=== PATIENT | male | born 1950 | race Caucasian/White ===

== ENCOUNTER 2019-01-04 09:06 | Emergency (ER) | payer OTHER ==
[2019-01-04 10:39] LABS: Absolute Lymphocytes (CBC) 0.9 K/uL (0.7-4.9); Basophils % 0.8 % (0-1.3); Eosinophils % 0.4 % (0-4.4); Hematocrit 42.9 % (39.6-49.0); Lymphocytes % 9.9 % (15.3-44.8); MPV 7.9 fL (7.6-11.3); Monocytes % 14.6 % (3.3-12.3); RBC Red Blood Cell Count 4.23 M/uL (4.33-5.43)
[2019-01-04 10:41] LABS: Protime INR 1.04
[2019-01-04 10:57] LABS: ALT/SGPT 19 U/L (12-78); AST/SGOT 11 U/L (15-37); Alkaline Phosphatase 58 U/L (45-117); BUN Blood Urea Nitrogen 10 mg/dL (7-18); Bicarbonate 27 mmol/L (21-32); Bilirubin Direct 0.2 mg/dL (0-0.2); Bilirubin Total 1.1 mg/dL (0.2-1.0); Glucose Level 103 mg/dL (74-106); Lipase 276 U/L (73-393); Magnesium 2.3 mg/dL (1.8-2.4); NT PRO-BNP 136 pg/mL (<125); Potassium 4.1 mmol/L (3.5-5.1); Protein, Total 7.5 g/dL (6.4-8.2); Sodium Level 138 mmol/L (136-145); Troponin (Emerg Dept Use Only) < 0.02 ng/mL (0.0-0.045)
--- NOTE | 2019-01-04 11:01 | RAD REPORT ---
EXAM DESCRIPTION: RAD - Chest Single View - 01/04/2019 10:47 am CLINICAL HISTORY: CHEST PAIN Chest pain. COMPARISON: No comparisons FINDINGS: Portable technique limits examination quality. The lungs are grossly clear. The heart is normal in size. No displaced fractures. IMPRESSION: No acute intrathoracic process suspected.
--- NOTE | 2019-01-04 12:03 | RAD REPORT ---
EXAM DESCRIPTION: CT - Chest For Pe Angio - 01/04/2019 11:55 am CLINICAL HISTORY: Chest pain. shortness of breath, chest pain COMPARISON: No comparisons TECHNIQUE: CT angiogram of the pulmonary arteries was performed with MIP. All CT scans are performed using dose optimization technique as appropriate and may include automated exposure control or mA/KV adjustment according to patient size. FINDINGS: No evidence of pulmonary thromboembolism. No acute aortic finding demonstrated. The lungs are clear. No significant pericardial or pleural fluid. No concerning bony finding. IMPRESSION: No evidence of pulmonary thromboembolism. No acute lung findings.
--- NOTE | 2019-01-04 12:07 | RAD REPORT ---
EXAM DESCRIPTION: CTAbdomen Pelvis W Contrast - 01/04/2019 11:55 am CLINICAL HISTORY: Abdominal pain. abdominal pain COMPARISON: <Comparisons> TECHNIQUE: Biphasic CT imaging of the abdomen and pelvis was performed with 100 ml non-ionic IV cont rast. All CT scans are performed using dose optimization technique as appropriate and may include automated exposure control or mA/KV adjustment according to patient size. FINDINGS: The lung bases are clear. Mild fatty liver is seen. No aggressive liver lesion is identified. No intrahepatic biliary dilatatio n. The spleen, adrenal glands and kidneys are within normal limits. 25 x 18 mm hypodense mass is seen in the pancreas uncinate process. The pancreatic duct is not dilate d. No bowel obstruction, free air, free fluid or abscess. Sigmoid diverticulosis coli without diverticul itis. The appendix is normal. No evidence of significant lymphadenopathy. Mild lumbosacral degenerative changes. IMPRESSION: 25 x 18 mm hypodense mass is present in the uncinate process of the pancreas. IPMT or cy stadenoma are differential possibilities. Recommend follow-up MR pancreas protocol with contrast on a nonemergent basis for further assessment.
[2019-01-04] MEDS ORDERED: MAGNE/ALUM HYDROXD 30 ML UCUP ONE (13:52)
[2019-01-04] MEDS ORDERED: LIDOCAINE VISCOUS 2% SOLN 15 ML UDC ONE (13:53)
--- NOTE | 2019-01-04 15:04 | EKG ---
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
--- NOTE | 2019-01-04 15:05 | EKG ---
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
--- NOTE | 2019-01-04 15:26 | RAD REPORT ---
EXAM DESCRIPTION: US - Abdomen Exam Limited - 01/04/2019 3:16 pm CLINICAL HISTORY: epigastric abdominal pain COMPARISON: No comparisons FINDINGS: The gallbladder demonstrates no gallstones. No pericholecystic fluid or gallbladder wall t hickening. The common bile duct is normal measuring 6 mm. The liver demonstrates no findings of intrahepatic biliary dilatation. IMPRESSION: Unremarkable examination.
--- NOTE | 2019-01-04 16:06 | EDPHYS ---
Physician Documentation [facility] Name: Juan Shelby Age: 68 yrs Sex: Male : 1950 Arrival Date: 01/04/2019 Time: 09:09 Bed 19 Private MD: Michelle Hernandez C ED Physician Torrey Veras HPI: 01/04 10:17 This 68 yrs old Male presents to ER via Ambulatory with complaints of Chest jmm Pain, Chest Tightness, Breathing Difficulty. 10:17 The patient presents with abdominal pain in the epigastric area. Onset: The jmm symptoms/episode began/occurred gradually, 1 day(s) ago. The symptoms radiate to chest. The symptoms are described as achy. Modifying factors: The symptoms are alleviated by nothing, the symptoms are aggravated by laying. This is a 68 year old male with a history of hlp that presents to the ED with complaints of epigastric abdominal pain which radiates to his chest. Symptoms are worsened with deep inspiration. Pain is localized mainly to the left upper quadrant. . Historical: - Allergies: 09:20 No Known Allergies; ch - Home Meds: 09:20 lumigan eye drops [Active]; rosuvastatin oral oral [Active]; ch - PMHx: 09:20 Hyperlipidemia; Arthritis; ch - PSHx: 09:20 None; ch - Immunization history:: Adult Immunizations up to date. - Social history:: Smoking status: Patient/guardian denies using tobacco, Patient/guardian denies using alcohol, street drugs. - Ebola Screening: : Patient negative for fever greater than or equal to 101.5 degrees Fahrenheit, and additional compatible Ebola Virus Disease symptoms Patient denies exposure to infectious person Patient denies travel to an Ebola-affected area in the 21 days before illness onset No symptoms or risks identified at this time. ROS: 10:17 Constitutional: Negative for fever, chills, and weight loss. jmm 10:17 Cardiovascular: Positive for chest pain. 10:17 Respiratory: Positive for shortness of breath. 10:17 Abdomen/GI: Positive for abdominal pain. 10:17 All other systems are negative. Exam: 10:17 Constitutional: This is a well developed, well nourished patient who is awake, alert, jmm and in no acute distress. Head/Face: atraumatic. Eyes: EOMI, no conjunctival erythema appreciated ENT: Moist Mucus Membranes Neck: Trachea midline, Supple Chest/axilla: Normal chest wall appearance and motion. Cardiovascular: Regular rate and rhythm. No edema appreciated Respiratory: Normal respirations, no respiratory distress appreciated 10:17 Back: Normal ROM Skin: General appearance color normal MS/ Extremity: Moves all extremities, no obvious deformities appreciated, no edema noted to the lower extremities Neuro: Awake and alert, normal gait Psych: Behavior is normal, Mood is normal, Patient is cooperative and pleasant 10:17 Abdomen/GI: Inspection: abdomen appears normal, Bowel sounds: normal, Palpation: abdomen is soft and non-tender. Vital Signs: 09:20 BP 111 / 81; Pulse 95; Resp 20; Temp 99; Pulse Ox 99% ; Weight 77.11 kg; Height 5 ft. 6 ch in. (167.64 cm); Pain 5/10; 10:30 BP 129 / 117; Pulse 71; Resp 17; Pulse Ox 97% on R/A; tw2 11:27 BP 142 / 85; Pulse 69; Resp 17; Pulse Ox 99% on R/A; tw2 12:30 BP 149 / 85; Pulse 70; Resp 17; Pulse Ox 98% on R/A; tw2 13:36 BP 144 / 86; Pulse 76; Resp 18; Pulse Ox 98% on R/A; aj 14:32 BP 141 / 89; Pulse 75; Resp 14; Pulse Ox 98% on R/A; tw2 15:43 BP 156 / 84; Pulse 88; Resp 16; Pulse Ox 97% on R/A; tw2 16:18 BP 141 / 161; Pulse 78; Resp 17; Pulse Ox 96% on NC; tw2 17:01 BP 161 / 92; Pulse 81; Resp 17; Pulse Ox 98% on R/A; tw2 17:15 BP 152 / 90; Pulse 81; Resp 17; Pulse Ox 97% on R/A; tw2 09:20 Body Mass Index 27.44 (77.11 kg, 167.64 cm) [facility]: 10:17 Patient medically screened. [facility] 16:01 Data reviewed: vital signs, nurses notes. Counseling: I had a detailed discussion with [facility] the patient and/or guardian regarding: the historical points, exam findings, and any diagnostic results supporting the discharge/admit diagnosis, lab results, radiology results, the need to transfer to another facility. ED course: I discussed the patient with Dr. House whom recommended transfer. I then discussed the patient with Dr. Daniel whom would consult on transfer. I discussed the patient with Dr. Diaz whom accepted transfer. . 01/04 10:19 Order name: Basic Metabolic Panel; Complete Time: 11:00 [facility] 01/04 10:19 Order name: CBC with Diff; Complete Time: 10:50 [facility] 01/04 10:19 Order name: LFT's; Complete Time: 11:00 [facility] 01/04 10:19 Order name: Magnesium; Complete Time: 11:00 [facility] 01/04 10:19 Order name: NT PRO-BNP; Complete Time: 11:00 [facility] 01/04 10:19 Order name: PT-INR; Complete Time: 10:48 [facility] 01/04 10:19 Order name: Troponin (emerg Dept Use Only); Complete Time: 11:00 [facility] 01/04 10:19 Order name: XRAY Chest (1 view); Complete Time: 11:03 [facility] 01/04 10:19 Order name: Lipase; Complete Time: 11:00 [facility] 01/04 10:24 Order name: D-Dimer; Complete Time: 11:03 [facility] 01/04 11:21 Order name: CT Chest For PE Angio; Complete Time: 12:08 [facility] 01/04 11:21 Order name: CT Abd/Pelvis - IV Contrast Only; Complete Time: 12:15 [facility] 01/04 14:13 Order name: Troponin (emerg Dept Use Only); Complete Time: 14:57 tw2 01/04 10:19 Order name: EKG; Complete Time: 10:21 [facility] 01/04 10:19 Order name: Cardiac monitoring; Complete Time: 10:34 [facility] 01/04 10:19 Order name: EKG - Nurse/Tech; Complete Time: 10:34 [facility] 01/04 10:19 Order name: IV Saline Lock; Complete Time: :34 [facility] 01/04 10:19 Order name: Labs collected and sent; Complete Time: 10:34 [facility] 01/04 10:19 Order name: O2 Per Protocol; Complete Time: 10:34 [facility] 01/04 10:19 Order name: O2 Sat Monitoring; Complete Time: : [facility] 01/04 14:13 Order name: EKG; Complete Time: 14:14 tw2 01/04 14:13 Order name: EKG - Nurse/Tech; Complete Time: 14:24 tw2 01/04 14:49 Order name: US Abdomen Limited; Complete Time: 15:30 [facility] Administered Medications: 13:40 Drug: GI Cocktail without - (Maalox Suspension 30 ml, Lidocaine Liquid 2 % 15 tw2 ml) Route: PO; 14:33 Follow up: Response: No adverse reaction tw2 Disposition: 18:23 Co-signature as Attending Physician, Torrey Veras MD. rn Disposition: 01/04/19 16:05 Transfer ordered to [facility]. Diagnosis are Pancreatic Mass, Chest Pain, Dyspnea. - Reason for transfer: Higher level of care. - Accepting physician is Dr. Diaz. - Condition is Stable. - Problem is new. - Symptoms are unchanged. Signatures: Dispatcher [employer] EDID Ene Ruggiero RN RN Сергей Meredith PA PA [facility] Torrey Veras MD MD rn Wise, Tara, RN RN tw2 Corrections: (The following items were deleted from the chart) 11:40 11:07 Chest Abdomen Pelvis W Con+CT.RAD.BRZ ordered. [facility] 18:17 16:05 01/04/2019 16:05 Transfer ordered to [facility]. Diagnosis is tw2 Pancreatic Mass; Chest Pain; Dyspnea. Reason for transfer: Higher level of care. Accepting physician is Dr. Diaz. Condition is Stable. Problem is new. Symptoms are unchanged. [facility]
--- NOTE | 2019-01-04 16:06 | ER ---
Nurse's Notes [facility] Name: Juan Shelby Age: 68 yrs Sex: Male : 1950 Arrival Date: 01/04/2019 Time: 09:09 Bed 19 Private MD: Michelle Hernandez C Diagnosis: Pancreatic Mass;Chest Pain;Dyspnea Presentation: 01/04 09:18 Presenting complaint: Patient states: chest pains with SOB after I ate, now pain ch epigastric and chest. started yesterday afternoon, worse around 1900 yesterday. I had to sleep sitting up because my chest hurt. hurts to breathe. Transition of care: patient was not received from another setting of care. Onset of symptoms was January 03, 2019 at 19:00. Risk Assessment: Do you want to hurt yourself or someone else? Patient reports no desire to harm self or others. Initial Sepsis Screen: Does the patient meet any 2 criteria? No. Patient's initial sepsis screen is negative. Does the patient have a suspected source of infection? No. Patient's initial sepsis screen is negative. Care prior to arrival: None. 09:18 Method Of Arrival: Ambulatory 09:18 Acuity: KIRSTEN 3 ch Triage Assessment: 09:20 General: Appears in no apparent distress. comfortable, Behavior is calm, cooperative, ch appropriate for age. Pain: Complains of pain in chest and epigastric area Pain currently is 5 out of 10 on a pain scale. Cardiovascular: Reports chest pain, shortness of breath. Historical: - Allergies: 09:20 No Known Allergies; - Home Meds: 09:20 lumigan eye drops [Active]; rosuvastatin oral oral [Active]; ch - PMHx: 09:20 Hyperlipidemia; Arthritis; - PSHx: 09:20 None; ch - Immunization history:: Adult Immunizations up to date. - Social history:: Smoking status: Patient/guardian denies using tobacco, Patient/guardian denies using alcohol, street drugs. - Ebola Screening: : Patient negative for fever greater than or equal to 101.5 degrees Fahrenheit, and additional compatible Ebola Virus Disease symptoms Patient denies exposure to infectious person Patient denies travel to an Ebola-affected area in the 21 days before illness onset No symptoms or risks identified at this time. Screenin:29 Abuse screen: Denies threats or abuse. Nutritional screening: No deficits noted. tw2 Tuberculosis screening: No symptoms or risk factors identified. Fall Risk None identified. Assessment: 10:00 General: Appears in no apparent distress. well groomed, Behavior is calm, cooperative, tw2 appropriate for age. Pain: Complains of pain in chest Pain does not radiate. Pain began 1 day ago. Neuro: Level of Consciousness is awake, alert, obeys commands, Oriented to person, place, time, situation. Cardiovascular: Heart tones S1 S2 Patient's skin is warm and dry. Respiratory: Airway is patent Respiratory effort is even, unlabored, Respiratory pattern is regular, symmetrical, Breath sounds are clear bilaterally. GI: No signs and/or symptoms were reported involving the gastrointestinal system. Abdomen is round non-distended, Bowel sounds present X 4 quads. : No signs and/or symptoms were reported regarding the genitourinary system. EENT: No signs and/or symptoms were reported regarding the EENT system. Derm: No signs and/or symptoms reported regarding the dermatologic system. Musculoskeletal: Range of motion: intact in all extremities. 10:30 Reassessment: Patient appears in no apparent distress at this time. No changes from tw2 previously documented assessment. Patient and/or family updated on plan of care and expected duration. Pain level reassessed. Patient is alert, oriented x 3, equal unlabored respirations, skin warm/dry/pink. 11:26 Reassessment: Patient appears in no apparent distress at this time. No changes from tw2 previously documented assessment. Patient and/or family updated on plan of care and expected duration. Pain level reassessed. Patient is alert, oriented x 3, equal unlabored respirations, skin warm/dry/pink. 12:30 Reassessment: Patient appears in no apparent distress at this time. No changes from tw2 previously documented assessment. Patient and/or family updated on plan of care and expected duration. Pain level reassessed. Patient is alert, oriented x 3, equal unlabored respirations, skin warm/dry/pink. 13:30 Reassessment: Patient appears in no apparent distress at this time. No changes from tw2 previously documented assessment. Patient and/or family updated on plan of care and expected duration. Pain level reassessed. Patient is alert, oriented x 3, equal unlabored respirations, skin warm/dry/pink. 14:33 Reassessment: Patient appears in no apparent distress at this time. No changes from tw2 previously documented assessment. Patient and/or family updated on plan of care and expected duration. Pain level reassessed. Patient is alert, oriented x 3, equal unlabored respirations, skin warm/dry/pink. 15:43 Reassessment: Patient appears in no apparent distress at this time. No changes from tw2 previously documented assessment. Patient and/or family updated on plan of care and expected duration. Pain level reassessed. Patient is alert, oriented x 3, equal unlabored respirations, skin warm/dry/pink. 16:01 Reassessment: provider at bedside discussing plan of care. tw2 16:19 Reassessment: Patient appears in no apparent distress at this time. No changes from tw2 previously documented assessment. Patient and/or family updated on plan of care and expected duration. Pain level reassessed. Patient is alert, oriented x 3, equal unlabored respirations, skin warm/dry/pink. Vital Signs: 09:20 BP 111 / 81; Pulse 95; Resp 20; Temp 99; Pulse Ox 99% ; Weight 77.11 kg; Height 5 ft. 6 ch in. (167.64 cm); Pain 5/10; 10:30 BP 129 / 117; Pulse 71; Resp 17; Pulse Ox 97% on R/A; tw2 11:27 BP 142 / 85; Pulse 69; Resp 17; Pulse Ox 99% on R/A; tw2 12:30 BP 149 / 85; Pulse 70; Resp 17; Pulse Ox 98% on R/A; tw2 13:36 BP 144 / 86; Pulse 76; Resp 18; Pulse Ox 98% on R/A; aj 14:32 BP 141 / 89; Pulse 75; Resp 14; Pulse Ox 98% on R/A; tw2 15:43 BP 156 / 84; Pulse 88; Resp 16; Pulse Ox 97% on R/A; tw2 16:18 BP 141 / 161; Pulse 78; Resp 17; Pulse Ox 96% on NC; tw2 17:01 BP 161 / 92; Pulse 81; Resp 17; Pulse Ox 98% on R/A; tw2 17:15 BP 152 / 90; Pulse 81; Resp 17; Pulse Ox 97% on R/A; tw2 09:20 Body Mass Index 27.44 (77.11 kg, 167.64 cm) ED Course: 09:09 Patient arrived in ED. ag5 09:09 Michelle Hernandez MD is Private Physician. ag5 09:19 Triage completed. 09:20 Arm band placed on left wrist. Patient placed in waiting room. 09:51 EKG done, by carpet cleaning technician. reviewed by Torrey Veras MD. at1 10:00 Bed in low position. Call light in reach. radiation monitor on. Pulse ox on. NIBP on. tw2 10:03 Сергей Martino PA is PHCP. [facility] 10:03 Torrey Veras MD is Attending Physician. jmm 10:23 Cheryle Ma RN is Primary Nurse. tw2 10:34 Inserted saline lock: 20 gauge in right antecubital area, using aseptic technique. tw2 Blood collected. Patient maintains SpO2 saturation greater than 95% on room air. 10:47 XRAY Chest (1 view) In Process Unspecified. EDMS 11:55 CT Chest For PE Angio In Process Unspecified. EDMS 11:55 CT Abd/Pelvis - IV Contrast Only In Process Unspecified. EDMS 14:21 EKG done, by carpet cleaning technician. dt2 15:18 US Abdomen Limited In Process Unspecified. EDMS 16:03 transfer approval from receiving facility. tw2 16:18 Awaiting: unsuccessful attempt to call report at this time. tw2 16:43 Report given to JOSE Diane [facility]. tw2 18:16 No provider procedures requiring assistance completed. Patient transferred, IV remains tw2 in place. Administered Medications: 13:40 Drug: GI Cocktail without - (Maalox Suspension 30 ml, Lidocaine Liquid 2 % 15 tw2 ml) Route: PO; 14:33 Follow up: Response: No adverse reaction tw2 Outcome: 16:05 ER care complete, transfer ordered by . [facility] 18:16 Transferred by ground EMS to [facility]. tw2 18:16 Condition: stable 18:16 Discharge instructions given to patient, significant other, Instructed on the need for transfer, Demonstrated understanding of instructions. 18:17 Patient left the ED. tw2 Signatures: Dispatcher [employer] EDMS Ene Ruggiero RN RN ch Myers, Amanda, RN RN aj Mickail, Joel, PA PA jmm Gonzales, Jeane, croze machine operator EKG Tat1 Cheryle Ma, JOSE RN tw2 Aidee Monreal dt2 Jaime Frias ag5
== END 2019-01-04 18:17 | disposition short-term general hospital (02) ==
LOC: ER 09:06
DX: K86.9 Disease of pancreas, unspecified (principal); R06.00 Dyspnea, unspecified; E78.5 Hyperlipidemia, unspecified
CPT/HCPCS: 93005 ×2; 85025; 80048; 36415; 83735; 85610; 85379; 80076; 84484 ×2; 83690; 83880; 71275; 74177; 71045; 76705; Q9967; 99285